=== PATIENT | male | born 1995 | race Caucasian/White ===

== ENCOUNTER 2018-05-14 03:37 | Emergency (ER) | payer SELFPAY ==
[~2018-05-14] VITALS: Ht 180.3 cm; Wt 80.0 kg
[2018-05-14] MEDS ORDERED: LIDOCAINE-MPF 2% ,5ML ONE ×3 (04:13→05:23)
[2018-05-14] MEDS ORDERED: LIDOCAINE 2%, 20ML SQ ONE (04:30)
[2018-05-14] MEDS ORDERED: DIPH,PERTUSS(ACELL),TET VAC/PF 0.5 ML IM-VACC ONE (04:30)
[2018-05-14] MEDS ORDERED: BACITRACIN ZINC OINT 500U/GM, 0.9 GM ONE (06:09)
[2018-05-14 06:19] VITALS: BP 107/70
== END 2018-05-14 06:37 ==
LOC: ED 06:00
DX: S61.217A Laceration without foreign body of left little finger without damage to nail, initial encounter (principal); S61.412A Laceration without foreign body of left hand, initial encounter; W22.8XXA Striking against or struck by other objects, initial encounter; Y93.89 Activity, other specified; Y99.8 Other external cause status; Y92.009 Unspecified place in unspecified non-institutional (private) residence as the place of occurrence of the external cause
CPT/HCPCS: 13132; 99285